=== PATIENT | male | born 1955 | race African-American/Black ===

== ENCOUNTER 2017-08-21 20:42 | Emergency (ER) | payer OTHER ==
[~2017-08-21] VITALS: Ht 175.3 cm; Wt 83.9 kg
[2017-08-21 20:55] VITALS: BP_SYST 122
--- NOTE | 2017-08-21 21:03 | NUR ---
Patient to ER bed 8 to gown for evaluation. Side rails up. Report given by STORM Hardin to STORM Santana.
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
--- NOTE | 2017-08-21 21:16 | NUR ---
ER Dr. Koehler at bedside examining patient.
[2017-08-21 21:52] LABS: BILIRUBIN,URINE NEGATIVE (NEGATIVE); BLOOD, URINE NEGATIVE (NEGATIVE); CLARITY/URINE CLEAR (CLEAR); COLOR,URINE YELLOW (YELLOW); GLUCOSE,URINE NEGATIVE (NEGATIVE); KETONES,URINE NEGATIVE (NEGATIVE); LEUKOCYTE ESTERASE ,URINE NEGATIVE (NEGATIVE); NITRITE, URINE NEGATIVE (NEGATIVE); PROTEIN URINE NEGATIVE (NEGATIVE); UROBILINOGEN,URINE 0.2 (0.2-1.0)
[2017-08-21 22:07] VITALS: BP_SYST 124
--- NOTE | 2017-08-21 22:07 | NUR ---
Patient given written and verbal discharge instructions and verbalizes understanding. ER MD discussed with patient the results and treatment provided. Patient in stable condition. ID arm band removed. Rx of motrin given. Patient educated on pain management and to follow up with PMD. Pain Scale 0/10. Opportunity for questions provided and answered.
== END 2017-08-21 22:07 | disposition home or self-care (01) ==
LOC: SED 20:42
DX: S13.4XXA Sprain of ligaments of cervical spine, initial encounter (principal); S43.401A Unspecified sprain of right shoulder joint, initial encounter; Z88.5 Allergy status to narcotic agent; V89.2XXA Person injured in unspecified motor-vehicle accident, traffic, initial encounter; Y93.89 Activity, other specified; Y92.410 Unspecified street and highway as the place of occurrence of the external cause; Y99.8 Other external cause status
CPT/HCPCS: 71045; 72040-TC; 73030; 81003; 99285